=== PATIENT | male | born 1950 | race Two or more races ===

== ENCOUNTER 2017-05-07 12:58 | Inpatient (IN) | payer OTHER ==
[~2017-05-07] VITALS: Ht 182.9 cm; Wt 83.5 kg
[2017-05-07] MEDS ORDERED: HYZAAR 100-12.1 EACH (13:12)
[2017-05-07] MEDS ORDERED: GLIMEPIRIDE4 MG (13:12)
[2017-05-07] MEDS ORDERED: METFORMIN HCL500 MG (13:12)
[2017-05-07] MEDS ORDERED: CARDIZEM120 MG (13:13)
[2017-05-07] MEDS ORDERED: ADVAIR HFA 115/12 GM (13:13)
== END 2017-05-10 10:05 | disposition designated cancer center or children's hospital (05) | DRG 311 ==
LOC: ER 12:58 → ICU-2 23:17 → ICU 23:17
PROC: 3E0F7GC Introduction of Other Therapeutic Substance into Respiratory Tract, Via Natural or Artificial Opening (ICD-10-PCS; principal; 2017-05-07)
PROC: B246ZZZ Ultrasonography of Right and Left Heart (ICD-10-PCS; 2017-05-08)
DX: I24.9 Acute ischemic heart disease, unspecified (principal); J45.998 Other asthma; I10 Essential (primary) hypertension; E11.9 Type 2 diabetes mellitus without complications

== ENCOUNTER 2018-03-15 09:33 | Emergency (ER) | payer OTHER ==
[~2018-03-15] VITALS: Ht 165.1 cm; Wt 54.4 kg
[~2018-03-15 09:33] MED LIST: ADVAIR HFA 115/12 GM; CARDIZEM120 MG; GLIMEPIRIDE4 MG; HYZAAR 100-12.1 EACH; METFORMIN HCL500 MG
== END 2018-03-15 13:08 | disposition home or self-care (01) ==
LOC: ER 09:33
DX: R07.89 Other chest pain (principal)

== ENCOUNTER 2018-06-14 10:48 | Outpatient (CLI) | payer OTHER | END 2018-06-14 10:49 | disposition home or self-care (01) | LOC: MAMO-SONO 10:48 | DX: N64.4 Mastodynia (principal); N62 Hypertrophy of breast; Z12.31 Encounter for screening mammogram for malignant neoplasm of breast ==

== ENCOUNTER 2023-11-14 06:57 | Emergency (ER) | payer OTHER ==
[~2023-11-14] VITALS: Ht 182.9 cm; Wt 79.8 kg
[2023-11-14 09:15] LABS: HEMATOCRIT 34.2 % (39.0-48.0); HEMOGLOBIN 11.5 g/dL (13-16.00); MEAN CELL VOLUME 83.8 fL (80.0-100.00); MEAN CORPUSCULAR HEMOGLOBIN 28.2 pg (27.00-32.0); MEAN CORPUSCULAR HGB CONC 33.6 g/dl (32.0-36.0); PLATELET COUNT 280 K/uL (150-450); RED BLOOD COUNT 4.08 M/uL (4.00-6.00); RED CELL DISTRIBUTION WIDTH 15.2 % (11.5-14.5)
[2023-11-14 09:35] LABS: CALCIUM 9.4 mg/dL (8.5-10.1); CREATININE SERUM 0.97 mg/dL (0.70-1.30); GFR 76.29; POTASSIUM 4.41 mEq/L (3.5-5.1)
== END 2023-11-14 11:47 | disposition home or self-care (01) ==
LOC: ER 06:57
PROVIDERS: General Practice
DX: R53.81 Other malaise (principal); R53.1 Weakness; I10 Essential (primary) hypertension; Z91.013 Allergy to seafood

== ENCOUNTER 2023-12-20 07:40 | Outpatient (CLI) | payer OTHER | END 2023-12-20 07:43 | disposition home or self-care (01) | LOC: NUCLEAR 07:40 | PROVIDERS: ATTEND Internal Medicine | DX: I65.23 Occlusion and stenosis of bilateral carotid arteries (principal); I25.10 Atherosclerotic heart disease of native coronary artery without angina pectoris ==

== ENCOUNTER 2024-12-12 08:21 | Outpatient (CLI) | payer OTHER | END 2024-12-12 08:27 | disposition home or self-care (01) | LOC: TOM 08:21 | PROVIDERS: ATTEND Internal Medicine Gastroenterology | DX: K44.9 Diaphragmatic hernia without obstruction or gangrene (principal) ==